=== PATIENT | female | born 2000 | race Hispanic/Latino ===

== ENCOUNTER 2023-10-23 13:30 | Emergency (ER) | payer BC ==
[~2023-10-23] VITALS: Ht 162.6 cm; Wt 70.5 kg
[2023-10-23] MEDS ORDERED: IBUPROFEN 600 MG TAB ONE (14:42)
[2023-10-23] MEDS: IBUPROFEN 600 MG TAB PO STA (14:42)
[2023-10-23] MEDS ORDERED: CIPRO500 MG PO (14:50)
[2023-10-23] MEDS ORDERED: NAPROXEN500 MG PO (14:52)
[2023-10-23 15:17] VITALS: O2SAT 98
== END 2023-10-23 15:07 | disposition home or self-care (01) ==
LOC: FSED 13:32
DX: M54.50 Low back pain, unspecified (principal); N39.0 Urinary tract infection, site not specified; R10.30 Lower abdominal pain, unspecified; R11.0 Nausea
CPT/HCPCS: 81003; 81025; 99283

== ENCOUNTER 2025-01-23 15:45 | Emergency (ER) | payer BC ==
[~2025-01-23] VITALS: Ht 162.6 cm; Wt 76.2 kg
[~2025-01-23 15:45] MED LIST: CIPRO500 MG PO; NAPROXEN500 MG PO
[2025-01-23] MEDS: KETOROLAC TROMETHAMINE 60 MG/2 ML VIAL IM ONE (16:17)
[2025-01-23] MEDS ORDERED: ONDANSETRON ODT4 MG PO (16:51)
[2025-01-23] MEDS ORDERED: AZITHROMYCIN250 MG PO (16:51)
[2025-01-23] MEDS: ONDANSETRON HCL 4 MG ORAL DISINTEGRATING TAB PO ONE (16:55)
[2025-01-23 17:12] VITALS: PULSE 88; RESP 18; TEMP 98.7; O2SAT 97
== END 2025-01-23 17:12 | disposition home or self-care (01) ==
LOC: FSED 15:49
DX: R05.9 Cough, unspecified (principal); J02.0 Streptococcal pharyngitis; Z11.52 Encounter for screening for COVID-19
CPT/HCPCS: 83518; 87400; 96372; 99283; J1885; Q0162